=== PATIENT | female | born 1975 | race Caucasian/White ===

== ENCOUNTER 2017-08-17 10:31 | Inpatient (IN) | payer OTHER ==
--- NOTE | 2017-08-16 20:22 | PREOPHP ---
DATE OF ADMISSION: 08/17/2017 The patient is to be admitted tomorrow, 08/17/2017, for repeat and tubal ligation at 37 weeks' gestation. Diagnosis of diabetes and cholestasis. HISTORY OF PRESENT ILLNESS: This is a 42-year-old female 7, para 6, who had 3 previous sections and is brought in at 37 weeks' gestation following the indication of Dr. Fletcher, perinatologist, to deliver at 37 weeks given her diabetes and cholestasis. She has requested sterilization on the basis of multiparity. She was told about the possible complications of this procedure, the alternatives, the benefits and the risks, including the risk of the repeat section since she is a grand multipara. Her EDC was determined by serial ultrasounds by Dr. Fletcher of 09/07/2017. She was allowed to ask questions, and all of her questions were answered to her satisfaction. These questions included the possibility of prematurity but given her multiple pathologies, she had been counseled to deliver this baby at 37 weeks. She signed the appropriate surgical informed consents. PAST MEDICAL HISTORY: The patient has a positive history for diabetes, asthma and cholestasis with every . She had been treated with glyburide by Dr. Fletcher, 2.5 mg in the morning, 2.5 mg with lunch and 5 mg at bedtime, with fair glycemic control. The asthma has been treated with albuterol inhaler. Cholestasis has been treated with Actigall 300 mg every 8 hours. FAMILY HISTORY: Noncontributory. ALLERGIES: SHE HAS NO KNOWN ALLERGIES. REVIEW OF SYSTEMS: A 12-point review of systems is noncontributory. PHYSICAL EXAMINATION: GENERAL: Well-developed, obese, in no distress, alert and oriented x3. Height is 5 feet and weight is 211 pounds. VITAL SIGNS: Showed temperature to be 98, blood pressure 118/61, respirations 16 per minute, pulse is 80 per minute, regular. HEENT: Within normal limits. Pupils are PERRLA. NECK: Supple. Thyroid is not palpable. There is no lymphadenopathy. BREASTS: Showed no masses or lumps. LUNGS: Clear to percussion and auscultation. HEART: Revealed normal sinus rhythm without a murmur. ABDOMEN: Soft. Uterus enlarged at 37 cm above the pubic bone, single baby, longitudinal lie, cephalic presentation. heart is category 1. PELVIC: Normal external genitalia. Cervix is long and closed. EXTREMITIES: Lower extremities within normal limits. NEUROLOGIC: Also normal. IMPRESSION: 1. A 37-week gestation. 2. Obesity. 3. Diabetes. 4. Cholestasis of . 5. Asthma. 6. Previous section x 3. 7. Multiparity. Dictated By: GABRIEL MATA/HARIKA Conf#: [id number] DID#: [id number] MTDD
[~2017-08-17] VITALS: Ht 152.4 cm; Wt 92.3 kg
[~2017-08-17 10:31] MED LIST: ALBU8.5H3 INH; PREN-39 PO
[2017-08-17] MEDS ORDERED: LACTATED RINGER'S 1,000 ML IV ONE (11:04)
[2017-08-17 11:05] VITALS: BP 128/84; PULSE 67; RESP 18
[2017-08-17] MEDS ORDERED: GLYB2.5T2 PO (11:16)
[2017-08-17] MEDS ORDERED: MISOPROSTOL 200 MCG TAB PR PRN ×2 (11:30→14:30)
[2017-08-17] MEDS ORDERED: OXYTOCIN 30 UNITS/LR 500 ML IV PRN ×2 (11:30→14:30)
[2017-08-17] MEDS ORDERED: OXYTOCIN 30 UNITS/LR 500 ML IV SCH (11:30)
[2017-08-17] MEDS ORDERED: CEFAZOLIN 2 GM/50 ML (PMX) 50 ML IVPB ONE (11:30)
[2017-08-17] MEDS ORDERED: ONDANSETRON 4 MG INJ IV ONE (11:30)
[2017-08-17] MEDS ORDERED: CARBOPROST 250 MCG INJ IM PRN ×2 (11:30→14:30)
[2017-08-17] MEDS ORDERED: CITRIC ACID/NA CITRATE 30 ML CUP PO ONE (11:30)
[2017-08-17] MEDS ORDERED: METHYLERGONOVINE 0.2 MG INJ IM PRN ×2 (11:30→14:30)
[2017-08-17] MEDS ORDERED: FENTAnyl 50 MCG/ML VIAL ONE (11:56)
[2017-08-17] MEDS ORDERED: morphine SULFATE/PF (10 MG/10 ML) INJ ONE (11:56)
[2017-08-17 12:16] LABS: BASOPHILS % 0.3 % (0.0-2.0); EOSINOPHILS % 0.3 % (0.0-7.0); HEMATOCRIT 37.5 % (37.0-47.0); HEMOGLOBIN 12.7 g/dl (12.0-16.0); LYMPHOCYTES # 2.6 10^3/ul (0.8-2.9); LYMPHOCYTES % 26.4 % (15.0-51.0); MEAN CORPUSCULAR HEMOGLOBIN 28.3 pg (29.0-33.0); MEAN CORPUSCULAR HGB CONC 33.9 g/dl (32.0-37.0); MEAN CORPUSCULAR VOLUME 83.7 fl (82.0-101.0); MEAN PLATELET VOLUME 11.3 fl (7.4-10.4); MONOCYTE # 0.4 10^3/ul (0.3-0.9); MONOCYTES % 4.2 % (0.0-11.0); NEUTROPHIL # 6.7 10^3/ul (1.6-7.5); NEUTROPHILS % 68.1 % (39.0-77.0); PLATELET COUNT 310 10^3/UL (140-415); RED BLOOD COUNT 4.48 10^6/ul (4.20-5.40); RED CELL DISTRIBUTION WIDTH 14.7 % (11.5-14.5); WHITE BLOOD COUNT 9.8 10^3/ul (4.8-10.8)
[2017-08-17] MEDS: LACTATED RINGER'S 1,000 ML IV SCH ×3 (12:21→18:32)
[2017-08-17] MEDS ORDERED: LACTATED RINGER'S 1,000 ML IV PRN (12:30)
[2017-08-17 12:35] LABS: INR 0.87; PROTIME 11.8 Sec (12.2-14.2); PT RATIO 0.9
[2017-08-17 12:36] LABS: PARTIAL THROMBOPLASTIN TIME 28.8 Sec (25.0-35.0)
[2017-08-17] MEDS ORDERED: METOCLOPRAMIDE 10 MG INJ ONE (13:19)
[2017-08-17] MEDS ORDERED: EPHEDrine SULFATE 50 MG/5 ML SYG ONE (13:22)
[2017-08-17] MEDS ORDERED: PHENYLephrine (100 MCG/ML) 5ML SYG ONE (13:56)
[2017-08-17] MEDS ORDERED: PROVENTIL HFA 6.7GM INHALER ONE (14:04)
--- NOTE | 2017-08-17 14:25 | SIPON ---
Date/Time of Note Date/Time of Note DATE: 08/17/17 TIME: 14:22 See dictated note. Operative Report Preoperative Diagnosis Repeat .Multiparity.Diabetes.Asthma.Cholestasis of Postoperative Diagnosis Same. Operation/Procedure Performed Repeat and bilateral tubal ligation. Surgeon Gabriel Buitrago embalmer assistant Cole Cho. Anesthesia: spinal Estimated blood loss: other Transfusion Required none Specimen Portion of fallopian tubes. Grafts/Implants none Complications none GABRIEL BUITRAGO MD Aug 17, 2017 14:25
[2017-08-17] MEDS ORDERED: OXYCODONE/ACETAMINOPHEN (5/325) TAB PO PRN ×2 (14:30)
[2017-08-17] MEDS ORDERED: LANOLIN 7 GM TUBE TOP PRN (14:30)
--- NOTE | 2017-08-17 14:59 | OPR ---
DATE OF OPERATION: 08/17/2017 PREOPERATIVE DIAGNOSES: 1. 37 weeks' gestation. 2. Previous section x3. 3. Cholestasis of . 4. Diabetes type 2. 5. Obesity. 6. Asthma. 7. Multiparity. POSTOPERATIVE DIAGNOSES: 1. 37 weeks' gestation. 2. Previous section x3. 3. Cholestasis of . 4. Diabetes type 2. 5. Obesity. 6. Asthma. 7. Multiparity. PROCEDURE: Repeat low segment transverse section. SURGEON: Dr. Gabriel Buitrago MD. BUSINESS SUPPORT ASSOCIATE: Vannessa Cho MD ANESTHESIA: Spinal, Dr. Reid. ESTIMATED BLOOD LOSS: 800 mL. COMPLICATIONS: None. FINDINGS: Baby boy, Apgars scores of 8 and 9. SPECIMENS: Portions of the fallopian tubes were cut and sent to pathology. There were no complicat ions. PROCEDURE AND FINDINGS: With the patient under spinal anesthesia, she was laid on the table in the dorsal recumbent position, tilted to the left side. Her abdomen and upper thighs were prepped with ChloraPrep and draped in the usual sterile fashion for this procedure. A Pfannenstiel incision was done and carried through all layers of abdominal wall with ease. Once in the abdomen, the uterine s egment was opened transversely high and a living male child was delivered and immediately handed to the respiratory team automobile accessories salesperson and found to have scores of 8 at first minute and 9 at five minut es. Sample cord blood was obtained. The placenta was delivered. The uterine cavity cleaned with a clean laparotomy pad. Incision in the uterus was closed with a continuous running stitch of 0 PDS. Good hemostasis was observed. Then, the tubal ligation was carried out by taking the right tube w ith a Scar clamp. Then, it was tied at its base twice with 0 plain catgut. The portion of tube was cut and sent to pathology. The same was repeated on the contralateral side. The pelvis was tho roughly cleaned with clean moist laparotomy pads. The operative areas were checked for bleeders. T here were none. Then, the abdomen was closed in layers starting with the peritoneum and muscle in 1 single layer with double 0 chromic catgut. The fascia was closed with continuous running stitch of 0 Vicryl. Finally, the edges of skin were brought together with subcutaneous 4-0 Monocryl. Steril e pressure dressing was applied and the patient was taken to recovery room with all vital signs stab le. EBL was 100 mL of blood. Needle, sponge and instrument count at the end of the procedure was c orrect twice. Dictated By: GABRIEL MATA/NTS Conf#: [id number] DID#: [id number] CC: ANU REID MD; VANNESSA CHO MD;*EndCC*
[2017-08-17] MEDS ORDERED: TRIMETHOBENZAMIDE 100 MG/ML VIAL IM PRN (15:00)
[2017-08-17] MEDS ORDERED: DIPHENHYDRAMINE 50 MG INJ IV PRN (15:00)
[2017-08-17] MEDS ORDERED: NALBUPHINE HCL (10 MG/1 ML) INJ IV PRN (15:00)
[2017-08-17] MEDS ORDERED: HYDROmorphONE 0.5 MG/0.5 ML SYG IV PRN ×2 (15:00)
[2017-08-17] MEDS ORDERED: NALOXONE (0.4 MG/ML) INJ IV PRN (15:00)
[2017-08-17] MEDS ORDERED: ONDANSETRON 4 MG INJ IV PRN (15:00)
[2017-08-17 17:30] VITALS: BP 116/67; PULSE 87; RESP 18
[2017-08-17] MEDS: CEFAZOLIN 2 GM/50 ML (PMX) 50 ML IVPB SCH (18:34)
[2017-08-17] MEDS: ALBUTEROL HFA 8 GM INHALER INH SCH (20:00)
[2017-08-17] MEDS: KETOROLAC 30 MG INJ IV PRN (20:04)
[2017-08-17 21:00] VITALS: BP 138/79; PULSE 74; RESP 22
[2017-08-17] MEDS: IBUPROFEN 800 MG TAB PO SCH (22:00)
[2017-08-18] VITALS: BP 134/71; PULSE 76; RESP 20
[2017-08-18] MEDS: CEFAZOLIN 2 GM/50 ML (PMX) 50 ML IVPB SCH ×2 (01:41→09:35)
[2017-08-18] MEDS: ALBUTEROL HFA 8 GM INHALER INH SCH ×4 (02:00→20:00)
[2017-08-18] MEDS: LACTATED RINGER'S 1,000 ML IV SCH ×2 (02:26→06:16)
[2017-08-18] MEDS: KETOROLAC 30 MG INJ IV PRN ×2 (02:26→09:40)
[2017-08-18 04:00] VITALS: BP 113/60; PULSE 60; RESP 20
[2017-08-18] MEDS: IBUPROFEN 800 MG TAB PO SCH ×3 (05:49→22:59)
--- NOTE | 2017-08-18 07:38 | PN ---
Date/Time of Note Date/Time of Note DATE: 08/18/17 TIME: 07:36 OB Subjective Subjective Subjective Doing well,asking to get up.FBS now.Labs pending. OB Objective Objective Objective Afebrile,VS stable Lochia normal Abdomen,soft.Dressing intact. HEENT: WNL Heart: Rhythm Normal Lungs: Clear, Equal Abdomen: WNL Extremities: Normal GABRIEL LYONS MD Aug 18, 2017 07:38
[2017-08-18 08:30] VITALS: BP 107/60; PULSE 64; RESP 16
[2017-08-18 08:54] LABS: BASOPHILS % 0.1 % (0.0-2.0); EOSINOPHILS # 0.1 10^3/ul (0.0-0.5); EOSINOPHILS % 0.5 % (0.0-7.0); HEMATOCRIT 31.8 % (37.0-47.0); HEMOGLOBIN 10.4 g/dl (12.0-16.0); LYMPHOCYTES % 21.6 % (15.0-51.0); MEAN CORPUSCULAR HEMOGLOBIN 27.9 pg (29.0-33.0); MEAN CORPUSCULAR HGB CONC 32.7 g/dl (32.0-37.0); MEAN CORPUSCULAR VOLUME 85.3 fl (82.0-101.0); MEAN PLATELET VOLUME 10.9 fl (7.4-10.4); MONOCYTE # 0.3 10^3/ul (0.3-0.9); MONOCYTES % 3.6 % (0.0-11.0); NEUTROPHIL # 6.9 10^3/ul (1.6-7.5); NEUTROPHILS % 73.8 % (39.0-77.0); PLATELET COUNT 234 10^3/UL (140-415); RED BLOOD COUNT 3.73 10^6/ul (4.20-5.40); RED CELL DISTRIBUTION WIDTH 14.7 % (11.5-14.5); WHITE BLOOD COUNT 9.3 10^3/ul (4.8-10.8)
[2017-08-18 13:02] VITALS: BP 105/61; PULSE 65; RESP 18
[2017-08-18 16:41] VITALS: BP 121/63; PULSE 75; RESP 14
[2017-08-18 19:00] VITALS: BP 120/71; PULSE 84; RESP 20
[2017-08-18] MEDS ORDERED: INFLUENZA VIRUS VACCINE 0.5 ML SYG IM* ONE (20:00)
[2017-08-19] MEDS: ALBUTEROL HFA 8 GM INHALER INH SCH ×4 (02:00→20:00)
[2017-08-19 04:00] VITALS: BP 110/70; PULSE 64; RESP 20
[2017-08-19] MEDS: IBUPROFEN 800 MG TAB PO SCH ×3 (06:20→22:17)
--- NOTE | 2017-08-19 07:36 | PN ---
Date/Time of Note Date/Time of Note DATE: 08/19/17 TIME: 07:34 OB Subjective Subjective Subjective passing gas no b.m yet tolerating diet well OB Objective Objective Objective vss afebrile abdomen soft wound dry lochia min calf neg for tenderness OB Assessment/Plan Other Assessment: stable post c/s #2 Other plan: discharge home in am CINDY GOLDBERG MD Aug 19, 2017 07:36
[2017-08-19 08:20] VITALS: BP 109/57; PULSE 73; RESP 16
[2017-08-19 16:00] VITALS: BP 125/72; PULSE 75; RESP 20
[2017-08-19 20:00] VITALS: BP 128/76; PULSE 74; RESP 18
[2017-08-20] MEDS: ALBUTEROL HFA 8 GM INHALER INH SCH (01:58)
[2017-08-20 04:00] VITALS: BP 129/84; PULSE 60; RESP 18
[2017-08-20] MEDS: IBUPROFEN 800 MG TAB PO SCH (06:13)
[2017-08-20 08:44] VITALS: BP 120/70; PULSE 80; RESP 19
[2017-08-20] MEDS ORDERED: DIPHTH/TET/ACEL PERTUSS (ADULT) 0.5 ML VIAL IM* ONE (09:00)
--- NOTE | 2017-08-20 09:29 | QN ---
Documentation Comment called to room to evaluate pt pt not able to close eyes on left side and vss exam facial nerve paralysis on left side with difficulty eye closure a/p pod3 bells palsy will start prednisone and valtrex and eye care STEPHANIE WATSON MD Aug 20, 2017 09:29
--- NOTE | 2017-08-20 10:29 | PD.PPDC ---
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
[2017-08-20] MEDS ORDERED: predniSONE 20 MG TAB PO SCH (10:30)
[2017-08-20] MEDS ORDERED: VALACYCLOVIR 500 MG TAB PO SCH (10:30)
--- NOTE | 2017-08-20 10:33 | DS ---
Date/Time of Note Date/Time of Note DATE: 08/20/17 TIME: 10:31 Obstetrical Discharge Record Final Diagnosis Final Diagnosis: Term delivered Other Final Diagnosis bejarano's palsy Vaginal Delivery Obstetrical Delivery: Bilateral Tubal Ligation Section Section: Repeat Complications Augmentation: No Induction: No Rupture of Membranes: No Condition on Discharge Physical Assessment Last Vitals: vss afebrile Voiding: Yes Bowel Movement: Yes Fundus: Firm Calf Tenderness: No Patient Condition: Stable CINDY GOLDBERG MD Aug 20, 2017 10:33
[2017-08-20] MEDS ORDERED: ARTIFICIAL TEARS 15 ML OPH BOTH EYES SCH (12:00)
== END 2017-08-20 14:38 | disposition home or self-care (01) | DRG 765 ==
LOC: L-D 10:31 → PP1 17:14
PROVIDERS: ADMIT Specialist; ATTEND Specialist
PROC: 0UL70ZZ Occlusion of Bilateral Fallopian Tubes, Open Approach (ICD-10-PCS; 2017-08-17)
PROC: 10D00Z1 Extraction of Products of Conception, Low, Open Approach (ICD-10-PCS; principal; 2017-08-17 12:30)
DX: O34.211 Maternal care for low transverse scar from previous cesarean delivery (principal); K83.1 Obstruction of bile duct; O99.214 Obesity complicating childbirth; E66.01 Morbid (severe) obesity due to excess calories; O24.419 Gestational diabetes mellitus in pregnancy, unspecified control; O26.62 Liver and biliary tract disorders in childbirth; Z68.39 Body mass index [BMI] 39.0-39.9, adult; Z30.2 Encounter for sterilization; Z3A.37 37 weeks gestation of pregnancy; Z37.0 Single live birth
CPT/HCPCS: 82962; 85025; 85610; 85730; 86592; 86850; 86900; 86901; 86920; 88302; 90686; 90715; 94760; 99464; J0690; J1885; J2274; J2370; J2405; J2590; J2765; J3010; J7120; J7512